=== PATIENT | female | born 1960 | race Caucasian/White ===

== ENCOUNTER 2023-10-28 13:53 | Inpatient (IN) | payer OTHER, SELFPAY ==
[2023-10-27] VITALS (10 sets, daily range): BP systolic 117–143; BP diastolic 70–85; BMI 27.5; BMI 27.3
[2023-10-27 11:59] LABS: % Basophils 0.3 % (0-2); % Eosinophils 0.2 % (0-6); % Immature Granulocytes 0.5 % (0-0.5); % Lymphocytes 14.4 % (20.5-51.1); % Monocytes 5.5 % (1.7-9.3); % Neutrophils 79.1 % (42.2-75.2); Absolute Immature Granulocytes 0.1 10^3/uL (0-0.05); Absolute Lymphocytes 1.9 10^3/uL (1.2-3.4); Absolute Monocytes 0.7 10^3/uL (0.1-0.6); Absolute Neutrophils 10.4 10^3/uL (1.4-6.5); Hematocrit 40.3 % (37.0-47.0); Hemoglobin 14.3 g/dL (12.0-16.0); Mean Corp Hgb Conc. 35.5 g/dL (33.0-37.0); Mean Corpuscular Hgb 32.2 pg (27.0-31.0); Mean Corpuscular Volume 90.8 fL (81.0-99.0); Mean Platelet Volume 10.2 fL (7.4-10.4); Nucleated Red Blood Cells % 0 %; Platelet Count 242 10^3/uL (130-400); Red Blood Cell Count 4.44 10^6/uL (4.20-5.40); Red Cell Dist. Width 13.3 % (11.5-14.5); White Blood Cell Count 13.1 10^3/uL (4.8-10.8)
[2023-10-27 12:13] LABS: ALT (SGPT) 11 U/L (0-35); AST (SGOT) 23 U/L (14-36); Albumin 4.5 g/dl (3.5-5.0); Alkaline Phosphatase 117 U/L (38-126); Blood Urea Nitrogen 12 mg/dl (7-17); Calcium 9.1 mg/dl (8.4-10.2); Carbon Dioxide 27 mmol/L (22-30); Chloride 102 mmol/L (98-107); Estimated Creatinine Clearance 74 ml/min; Glucose 117 mg/dl (70-99); Lipase 82 U/L (23-300); Potassium 4.1 mmol/L (3.5-5.1); Sodium 136 mmol/L (135-145); Total Bilirubin 1.1 mg/dl (0.2-1.3); Total Protein 7.6 g/dl (6.3-8.2); eGFR > 60.00
[2023-10-27] MEDS: MORPHINE SULFATE 4 MG IV (14:56)
[2023-10-27] MEDS: NSS 1000 IV (14:56)
[2023-10-27] MEDS: OMNIPAQUE 50 ML PO (14:56)
[2023-10-27] MEDS: ZOFRAN 4 MG IV (14:56)
[2023-10-27 16:59] LABS: Urine Albumin Negative (Neg - Trace); Urine Bilirubin Negative (Negative); Urine Character Clear (Clear); Urine Color Yellow; Urine Glucose Negative (Negative); Urine Ketone 2+ (Negative); Urine Leukocyte 1+ (Negative); Urine Nitrite Negative (Negative); Urine Occult Blood Negative (Negative); Urine Urobilinogen Negative (Neg - 1+)
[2023-10-27 17:10] LABS: Urine Mucus Few
[2023-10-27 17:11] LABS: Urine Bacteria Moderate (Negative)
--- NOTE | 2023-10-27 18:22 | ED.GENMED ---
History of Present Illness
General
Chief Complaint: Abdominal Pain
Source: patient
Exam Limitations: none
Time Seen by Provider: 10/27/23 14:39
Nursing documentation reviewed up to this point in time: agreed with
Travel History
Have you had any contact with someone who has COVID-19?: No
Do you have any symptoms of coronavirus? Fever > 100 degrees, chills, cough, shortness of breath, sore throat, loss of taste or smell, muscle aches, or headache?: No
History of Present Illness
History of Present Illness:
Patient to ED with complaint of RLQ abdominal pain. Woke Wednesday Am with pain. COmplains of vomiting and bloating. Brought to ED by spouse for eval.
Past History
Past History
ED Past Medical History: Cancer (Breast CA, radiation), HTN and Hypercholesterolemia
ED Past Surgical History: None
Social History
Tobacco: Non-smoker
Alcohol: Occasional
Personal:
Living: with family
Review of Systems
Review of Systems
Allergies reviewed?: Yes
All Other Systems: ROS reviewed and negative except as documented in HPI and ROS
Constitutional: Reports no symptoms
EENT: Reports no symptoms
Respiratory: Reports no symptoms
Cardiac: Reports no symptoms
ABD/GI: Reports abdominal pain (RLQ)
: Reports no symptoms
Musculoskeletal: Reports no symptoms
Skin: Reports no symptoms
Neurological: Reports no symptoms
Psychiatric: Reports no symptoms
Phy Exam
General Physical Exam
General Presentation: well appearing and mild distress
General age: appears stated age
General Skin: warm and dry
General Habitus: normal
General Mental: alert
General Hydration: appears well hydrated
Cardiovascular Exam
Cardiovascular Exam: regular rate/rhythm and no edema
Pulmonary Exam
Pulmonary Exam: lungs clear and no respiratory distress
Gastrointestinal Exam
Gastrointestinal Exam: normal bowel sounds, soft, no organomegaly, non distended and no cva tenderness
Palpation: left upper quadrant: No tenderness, left lower quadrant: No tenderness, right upper quadrant: Minimal tenderness and right lower quadrant: Moderate tenderness
Musculoskeletal Exam
Musculoskeletal Exam: full ROM and neuro vasc intact
Skin Exam
Skin Exam: normal color, warm/dry and no rash
Psychiatric Exam
Psychiatric Exam: normal mood/affect
Course
Orders/Labs/Results
Orders:
Orders
10/27/23 11:44
Complete Blood Count/With Diff Urgent
Comprehensive Metabolic Panel Urgent
Lipase Urgent
10/27/23 14:46
CT Abd/pel W Iv And Oral Contr Urgent
Comment:
Reason For Exam: RLQ pain
Iohexol [Omnipaque] See Protocol PO NOW STA
Morphine Sulfate 4 mg IV NOW STA
Ondansetron Injectable [Zofran] 4 mg IV NOW STA
10/27/23 14:48
0.9% Sodium Chloride 1000 ml [Nss] 1,000 ml IV BOLUS
10/27/23 16:35
Urinalysis Reflex To Culture Urgent
Date Specimen was Collected: 10/27/23
Time Specimen was Collected: 15:42
Urine Microscopic Reflex Cult Urgent
Urine Culture Urgent
DOMINIC Source: U
Specimen Description:
Date Specimen was Collected: 10/27/23
Time Specimen was Collected: 15:42
10/27/23 18:26
Piperacillin/Tazo 3.375 Gram [Zosyn] 3.375 gram in 50 ml IV NOW
10/27/23 18:40
Acetaminophen 1000MG/100Ml [Ofirmev] 1,000 mg in 100 ml .ROUTE .STK-MED
10/27/23 19:45
Admit/Transfer Patient As Directed
Co-Sign Provider:
Level of Care: Observation services
Assign to:: Medical/Surgical
Physician / Group: Dr. Leigh Surgical
Diagnosis: Acute appendicitis
10/27/23 19:46
Code Status As Directed
Resuscitation Status: Full Code
10/27/23 21:04
Acetaminophen [Tylenol] 650 mg PO Q4HPRN PRN
Morphine Sulfate 2 mg IV Q4HPRN PRN
Ondansetron Injectable [Zofran] 4 mg IV Q6HPRN PRN
10/27/23 21:04
Activity As Directed
Activity Level: Out of Bed-Early Mobility
Vital Signs As Directed
Frequency: Per unit guidelines
DX Deep Vein Thrombosis Video Routine
10/27/23 22:00
Flush (0.9% Sodium Chloride) [Flush (Nss)] See Dose Instructions IV PER PROTOCOL
10/28/23 00:00
Piperacillin/Tazo 3.375 Gram [Zosyn] 3.375 gram in 50 ml IV Q6H
10/28/23 04:43
Hepatitis C Antibody Urgent
10/28/23 Breakfast
NPO
Allow oral meds: Yes
Allow clear liquids: No
10/28/23 07:57
HYDROmorphone [Dilaudid] 0.25 mg IV Q2HPRN PRN
HYDROmorphone [Dilaudid] 0.5 mg IV Q2HPRN PRN
10/28/23 08:00
Dextrose 5%/0.45%Sodchl 1000ML [D5/0.45%NaCl] 1,000 ml IV 120 mls/hr
10/28/23 10:56
HYDROmorphone [Dilaudid] 0.25 mg IV PACU-Q5MPRN PRN
HYDROmorphone [Dilaudid] 0.5 mg IV PACU-Q5MPRN PRN
Meperidine [Demerol] 12.5 mg IV PACU-Q5MPRN PRN
Ondansetron Injectable [Zofran] 4 mg IV PACU-ONCEPRN PRN
Prochlorperazine [Compazine] 5 mg IV PACU-ONCEPRN PRN
Notify MD As Directed
Notify physician if: for SDS patients with known or suspected sleep obstructive sleep apnea, monitor in the
PACU.
Notify MD for any apneic/desaturation episodes
O2 Therapy [RESP] Urgent
Titrate/Wean O2 to maintain O2 sat greater than (%): 92
Special Instructions: -Provide supplemental oxygen to achieve O2 sat of 92% or greater.
-After 15 min, may wean O2 and discontinue if patient is able to maintain O2 sat of 92%
or greater during recovery period.
If patient is a discharge home, without oxygen therapy, notify anestheiologist if
unable to maintain O2 SAT of 92% or greater on room air for MD clearance.
10/28/23 10:57
Electrocardiogram (*1) Stat
Reason for Study: PreOp
10/28/23 11:00
Normosol (Mult Electrolytes) [Normosol-R] 1,000 ml IV PER PROTOCOL
10/28/23 11:52
Bupivacaine Mpf 0.25% [Sensorcaine-Mpf 0.25% Vial] 30 ml .ROUTE .STK-MED ONE
10/28/23 12:14
Fentanyl Citrate/Pf [Sublimaze] 100 mcg .ROUTE .STK-MED ONE
Midazolam HCl [Versed] 2 mg .ROUTE .STK-MED ONE
10/28/23 12:15
Dexamethasone Sod Phosphate [Decadron] 20 mg .ROUTE .STK-MED ONE
Lidocaine HCl/Pf [Xylocaine-Mpf 1% Vial] 50 mg .ROUTE .STK-MED ONE
Ondansetron Injectable [Zofran] 4 mg .ROUTE .STK-MED ONE
Propofol [Diprivan] 20 ml .ROUTE .STK-MED
Rocuronium Tyro [Rocuronium] 50 mg .ROUTE .STK-MED ONE
10/28/23 12:46
Phenylephrine HCl/0.9% NaCl [Tal-Synephrine] 1,000 mcg .ROUTE .STK-MED ONE
10/28/23 13:02
HYDROmorphone [Dilaudid] 1 mg .ROUTE .STK-MED ONE
10/28/23 13:08
OR Pathology Routine
Clinical History: acute appendicitis
Pre-Operative Diagnosis: acute appendicitis
Post-Operative Diagnosis: acute appendicitis
Operative Procedure: laproscopic appendectomy
Surgeon: rory
Circulating Nurse: sasha
Specimen Type: appendix
10/28/23 13:37
Ketorolac [Toradol] 30 mg .ROUTE .STK-MED ONE
Sugammadex Sodium [Bridion] 200 mg .ROUTE .STK-MED ONE
10/28/23 18:00
Enoxaparin Sodium [Lovenox] 30 mg SC QPM
Abnormal Lab Results
10/27/23 10/27/23
11:44 16:35
WBC 13.1 H 10^3/uL
(4.8-10.8)
MCH 32.2 H pg
(27.0-31.0)
Abs Immat Gran (auto) 0.1 H 10^3/uL
(0-0.05)
Absolute Neuts (auto) 10.4 H 10^3/uL
(1.4-6.5)
Absolute Monos (auto) 0.7 H 10^3/uL
(0.1-0.6)
Neutrophils % 79.1 H %
(42.2-75.2)
Lymphocytes % 14.4 L %
(20.5-51.1)
Glucose 117 H mg/dl
(70-99)
Urine Ketones 2+ A
(Negative)
Leukocyte Esterase Rfl 1+ A
(Negative)
Urine RBC 3-6 A /HPF
(0-2)
Urine WBC (Reflex) 11-15 A /HPF
(0-5)
Urine Bacteria (Reflex) Moderate A
(Negative)
10/27/23 11:44
10/27/23 11:44
Vital Signs
Initial and Last Documented VS:
Initial Vital Signs
Temp Pulse Resp BP Pulse Ox
98.6 F 79 16 119/79 96
10/27/23 11:40 10/27/23 11:40 10/27/23 11:40 10/27/23 11:40 10/27/23 11:40
Last Documented Vital Signs
Temp Pulse Resp BP Pulse Ox
98.3 F 74 16 139/83 95
10/29/23 08:53 10/29/23 08:53 10/29/23 08:53 10/29/23 08:53 10/29/23 08:53
*Radiology
Radiology exam reviewed: radiology read reviewed
*Pulse Oximetry
Patient hypoxic: no
*Critical Care Note
Total Time (30-74mins, 75-104mins- exclusive of procedures): Not Applicable
Update Note
Update Note:
Acute appendicitis. Dr. Leigh will admit. Requests tylenol or IV dilaudid for pain control Placed on Zosyn in ED.
ED Attending Note
-
Portions of this chart may have been created with voice recognition software.� Occasional wrong word or��sound alike� substitutions may have occurred due to the inherent limitations of voice recognition software.
Discharge Plan
Departure
Patient Disposition: Admit
Date of Disposition: 10/27/23
Time of Disposition: 18:31
Presentation/result/management discussed w/ accepting /: Lu
Patient with high blood pressure during this ER visit?: Yes
Condition: Fair
Covid-19: Not Applicable
Discharge Problem:
Acute appendicitis
Interventions
Interventions:
*Risk Screen - Suicide Last Done: 10/27/23 14:33
*General Assessment Last Done: 10/27/23 14:33
*Neglect/Abuse Screening Last Done: 10/27/23 14:33
ED- Fall Risk Assessment Last Done: 10/27/23 14:33
*ED COVID-19 Vaccine History Last Done: 10/27/23 11:40
*Nursing Disposition Last Done: 10/27/23 20:50
FU-Zilmub-Qfukssflnn Assessment Last Done: 10/27/23 14:33
Discharge Date and Time
Discharge Date/Time: 10/27/23 20:50
[2023-10-27] MEDS: ZOSYN 50 IV (18:30)
--- NOTE | 2023-10-27 19:50 | HPS.HSE ---
Addendum entered and electronically signed by Rodney Snider MD 10/28/23 07:56:
Patient seen and examined independently of admitting nurse practitioner agree with documented history and physical which is consistent my examination and evaluation at this time.
HPI: 63-year-old female was in her usual baseline state of health until approximately 48 hours ago when she awoke on Wednesday morning at 6 AM with abdominal pain periumbilical and right lower quadrant. Nausea and vomiting throughout the day Wednesday
overnight. Pain increased in severity and localized to right lower quadrant. Painful with movement. Has not moved her bowels in the last 24 hours. Previously bowels moving regularly. No episodes like this in the past.
Past medical history only notable for hypertension, past surgical history for having undergone multiple orthopedic procedures including hip replacement
Allergy to oxycodone due to medication side effect -nausea vomiting
Temperature 99.7, vital signs stable
No acute distress but acutely ill-appearing
Abdomen softly distended tenderness palpation localizing to the right lower quadrant with voluntary guarding and rebound
White blood cell count 13.1. Neutrophil shift 79%. Chemistry panel unremarkable. Urine with 2+ ketones.
CT abdomen/pelvis reviewed. Dilated fluid-filled appendix in the right lower quadrant with periappendiceal inflammatory changes. No obvious abscess. Some surrounding free fluid.
Assessment/plan: 63-year-old female with acute appendicitis and secondary localized peritonitis
Reviewed with patient treatment options including operative versus nonoperative. Discussed risk/benefits associated with these treatment approaches. Patient in agreement to proceed with appendectomy.
Laparoscopic appendectomy was reviewed in detail including the operative technique, alternative treatment options, benefits and potential risk such as but not limited to bleeding, infectious and wound related complications, iatrogenic injury to
surrounding viscera, possible need for ileocecectomy, possible conversion to open surgery. We discussed the typical postoperative recovery pending operative findings including the possibility of perforated appendix requiring drain placement and
longer postoperative hospitalization/care for recovery. Any of the patient's concerns or questions were fully addressed.
Patient has been added onto the OR schedule today for lap appendectomy
N.p.o.
IV fluid hydration
Continue Zosyn
Original Note:
Family Physician
-
Family Physician: Pamela Bonner
Chief Complaint
-
Abdominal pain
History of Present Illness
a 63 years old female present in ER for eval of abdominal pain. Pain started Wednesday morning around 6 am waked her up from sleeping, constant pain rated 8/10 of pain scale at the umbilical area and RLQ. Pain associated with nausea and vomiting x3.
She took Tylenol that did not help with the pain. Denied constipation, diarrhea, urinary symptoms, sob, chest pain or any other symptoms. Patient has medical history of HTN.
Medical History
Past Medical History
Past Medical History: Reports HTN and Hypercholesterolemia
Past Surgical History: Reports Orthopedic (RT hip fracture and LT hand surgery )
Social History
Tobacco: Non-smoker
Alcohol: Occasional
Drug: None
Personal:
Living: With Family
Employment: Other
Family History
Family History: Not pertinent
Allergies / Home Medications
Allergies reflects when Allergies were last updated in [facility].
Home Medications with original date entered in [facility]
Allergy/Medication List:
This is your updated home medication list that has been updated as of 10/27/23
Patient Allergies
Allergy/AdvReac Type Severity Reaction Status Date / Time
oxycodone AdvReac Nausea / Verified 08/14/22 13:41
Vomiting
Home Medications Table - record
Medication Instructions Recorded Confirmed
calcium carbonate 500 mg calcium 500 mg PO DAILY 10/27/23 10/27/23
(1,250 mg) tablet
losartan 100 mg tablet 100 mg PO DAILY 10/27/23 10/27/23
multivitamin 1 tab PO DAILY 10/27/23 10/27/23
Review of Systems
-
A 12 point ROS was completed and negative except as noted: Yes
EENT: Reports No Symptoms
Respiratory: Reports No Symptoms
Cardiac: Reports No Symptoms
Abdomen/GI: Reports Abdominal Pain (RLQ)
: Reports No Symptoms
Musculoskeletal: Reports No Symptoms
Physical Exam
Vital Signs
Vital Signs
Temp Pulse Resp BP Pulse Ox
98.6 F 79 16 143/85 94
10/27/23 11:40 10/27/23 11:40 10/27/23 11:40 10/27/23 18:07 10/27/23 18:15
Physical Exam
General: No Apparent Distress
Respiratory: Clear
Cardiac: Regular Rhythm
GI: Soft, Normal Bowel Sounds and Tender (RLQ )
Musculoskeletal: No Cyanosis and No Edema
Neuro: AO x 3
Laboratory Results
-
10/27/23 11:44
10/27/23 11:44
Laboratory Results
Total Bilirubin 1.1 mg/dl (0.2-1.3) 10/27/23 11:44
AST 23 U/L (14-36) 10/27/23 11:44
ALT 11 U/L (0-35) 10/27/23 11:44
Alkaline Phosphatase 117 U/L (38-126) 10/27/23 11:44
Lipase 82 U/L (23-300) 10/27/23 11:44
Data Reviewed
-
CT Scan: Discussed with Patient
Lab Data: Discussed with Patient
Impression/Plan
-
Abd/plvs CT shows acute appendicitis. New. No evidence of perforation or abscess formation.
WBC 13.1
IMPRESSION:
Acute appendicitis
PLAN:
Admit/ observation / Med-surg (Dr. Leigh surgical services)
NPO
Abx Zosyn
analgesics as needed
Antiemetics as needed
HTN
On Losartan 100mg daily
DVT prophylaxis: Lovenox sq
Code Status: Full code
--- NOTE | 2023-10-27 22:27 | TRANSFER ---
Received pt from ED at 2100, spouse at bedside. Pt is ambulatory, independent at baseline. VSS, c/o h/a - last given pain med in ED prior to transfer. No c/o abd pain. Call suarez within reach, bed in lowest position.
[2023-10-28] VITALS (10 sets, daily range): BP systolic 100–125; BP diastolic 50–81
[2023-10-28] MEDS: ZOSYN 50 IV ×5 (01:00→22:56)
[2023-10-28] MEDS: MORPHINE SULFATE 2 MG IV (01:15)
[2023-10-28 07:26] LABS: Hepatitis C Antibody Negative (Negative)
[2023-10-28] MEDS: TYLENOL 650 MG PO ×2 (09:34→22:11)
[2023-10-28] MEDS: D5/0.45%NACL 1000 IV ×3 (09:35→22:56)
--- NOTE | 2023-10-28 11:45 | CM ---
Addendum entered by Aditi Gray 10/28/23 14:59:
Spoke with pts - pt in RR
Pt lives with her and daughter in a 2 story home
Independent, drives
No DME
Denies HH. Reports was in rehab after hip sx, unsure of facility
Will have ride at d/c
PCP - Dr Bonner
Pharm - [facility]
Plan - anticipate home no needs
Original Note:
Attempted to complete initial assessment - pt in OR
CM will follow
--- NOTE | 2023-10-28 12:14 | W.SUR.PREOP ---
Pre-Operative Surgical Note
-
I have examined this patient prior to the performance of the scheduled procedure.
The patient's condition is unchanged from the time of the current History and
Physical and the patient is able to undergo the scheduled procedure.
--- NOTE | 2023-10-28 13:49 | W.IMMPOSTOP ---
Addendum entered and electronically signed by Rodney Snider MD 10/28/23 14:06:
#[id number]
Original Note:
Surgical Immed Post Op Note
-
Primary Surgeon: Tylor
Assisting Surgeon: None
Pre-op Diagnosis: Acute appendicitis
Post-op Diagnosis: Acute appendicitis with perforation with localized peritonitis
Procedure Performed: Laparoscopic appendectomy
Anesthesia Type: GETA +0.25% Marcaine
Specimen / Cultures: Appendix
Estimated Blood Loss: 12 mm
Complications: None immediate
Operative Findings: Walled off appendix in right lower quadrant. Purulence around appendix indicative of probable microperforation. No gross perforation/disruption of appendix with appendectomy. Localized peritonitis. Appendectomy completed with
HARIS 30 nascimento stapler divided at the base.
Plan: Continue Zosyn postop, liquid diet until signs of GI recovery, continue IV fluid hydration, continue supportive care
updated postop in waiting area on operative findings and postoperative care
--- NOTE | 2023-10-28 14:50 | PTCARENOTE ---
Patient returned from [facility] post laparoscopic appendectomy.Vital signs are stable.All three lap sites are clean and dry.The patient denies any pain .She said she is feeling much better now.Her is at the bedside.The patient is in her bed with
the call suarez.
[2023-10-28] MEDS: LOVENOX 30 MG SC (17:08)
[2023-10-29 03:40] VITALS: BP 141/86
[2023-10-29] MEDS: ZOSYN 50 IV (05:54)
[2023-10-29] MEDS: D5/0.45%NACL 1000 IV (05:57)
[2023-10-29 08:53] VITALS: BP 139/83
[2023-10-29] MEDS: TYLENOL 650 MG PO (09:02)
--- NOTE | 2023-10-29 09:04 | W.PN.GS2 ---
Today's Communication / Plan
-
`
Assessment / Plan
-
Assessment: 63-year-old female postoperative day #1 status post laparoscopic appendectomy for acute perforated appendicitis with localized peritonitis
Peritonitis resolved
Afebrile vital signs stable
Doing well postop
Plan: Maintain full liquid diet for now, if tolerates through lunch without nausea or worsening abdominal distention then anticipate discharge home
Discharge on an additional 4-day course of Augmentin for total of 5 days postop
Subjective Data
-
Date of Service: October 29, 2023
Patient seen and examined
Postoperative incisional pain controlled
Presenting abdominal pain much improved
No nausea, tolerating full liquid diet, appetite okay
No flatus, no bowel movement
Still feels a bit bloated but improved from yesterday
Objective Data
-
Intake and Output
10/28/23 10/29/23 10/30/23
06:59 06:59 06:59
Intake Total 150 / 150 3810 / 3810
Balance 150 / 150 3810 / 3810
Intake:
Oral fluids 1440 / 1440
IV fluids (Total) 50 / 50 2220 / 2220
normosol 300 / 300
IV piggybacks 100 / 100 150 / 150
Other:
Number of approximated MODERATE 1 3
amounts of urine
Vital Signs
Temp Pulse Resp BP Pulse Ox
98.3 F 74 16 139/83 95
10/29/23 08:53 10/29/23 08:53 10/29/23 08:53 10/29/23 08:53 10/29/23 08:53
Lab Results
10/27/23 11:44
10/27/23 11:44
Calcium 9.1 mg/dl (8.4-10.2) 10/27/23 11:44
Total Bilirubin 1.1 mg/dl (0.2-1.3) 10/27/23 11:44
AST 23 U/L (14-36) 10/27/23 11:44
ALT 11 U/L (0-35) 10/27/23 11:44
Alkaline Phosphatase 117 U/L (38-126) 10/27/23 11:44
Total Protein 7.6 g/dl (6.3-8.2) 10/27/23 11:44
Albumin 4.5 g/dl (3.5-5.0) 10/27/23 11:44
Physical Exam
-
NAD AAOx3
ABD: softly distended, TTP at incision sites, no R/R/G
incisions with glue dressings
--- NOTE | 2023-10-29 11:21 | CM ---
Reviewed chart. Spoke with pt
Pt for discharge
will take home
No needs anticipated
Plan - d/c to home - no needs
== END 2023-10-29 11:26 | disposition home or self-care (01) | DRG 399 ==
LOC: 2 SOUTH 13:53
PROVIDERS: Emergency Medicine; Nurse Practitioner; Surgery; ADMITTING PHYSICIAN Surgery; EMERGENCY PHYSICIAN Emergency Medicine; FAMILY PHYSICIAN Family Medicine
PROC: 0DTJ4ZZ Resection of Appendix, Percutaneous Endoscopic Approach (ICD-10-PCS; 2023-10-28)
DX: K35.32 Acute appendicitis with perforation, localized peritonitis, and gangrene, without abscess (principal); I10 Essential (primary) hypertension; Z88.5 Allergy status to narcotic agent
CPT/HCPCS: 88304; 74177; 80053; 81003; 81015; 83690; 85025; 86803; 87086; 93005; 96361; 96365; 96375; 99285; Q9967

== ENCOUNTER → 2024-04-22 11:19 | Outpatient (REF) | payer OTHER, SELFPAY | LOC: WDC 11:19 | PROVIDERS: ATTENDING PHYSICIAN Family Medicine Geriatric Medicine; FAMILY PHYSICIAN Family Medicine | DX: Z12.31 Encounter for screening mammogram for malignant neoplasm of breast (principal); Z85.3 Personal history of malignant neoplasm of breast; C50.412 Malignant neoplasm of upper-outer quadrant of left female breast; Z17.0 Estrogen receptor positive status [ER+] | CPT/HCPCS: 77063; 77067 ==

== ENCOUNTER → 2025-05-02 17:12 | Outpatient (REF) | payer OTHER, SELFPAY | LOC: WDC 17:12 | PROVIDERS: ATTENDING PHYSICIAN Obstetrics & Gynecology; FAMILY PHYSICIAN Family Medicine | DX: Z12.31 Encounter for screening mammogram for malignant neoplasm of breast (principal) | CPT/HCPCS: 77063; 77067 ==